=== PATIENT | female | born 1960 | race Caucasian/White ===

== ENCOUNTER → 2017-05-20 | Outpatient (CLI) | payer OTHER ==
[~2017-05-20] MED LIST: 1-ME1LIQ PO; FISH1000 PO; PRAV80TA PO; VITA20002 PO
--- NOTE | 2017-05-28 09:54 | RSPPFT ---
DATE OF PROCEDURE: 05/20/17 COMMENTS: The forced vital capacity shows a small reduction. The FEV1 and FEF 25-75 are both markedly reduced. The FEV1/FVC ratio is reduced. The total lung capacity is increased with a marked increase in the residual volume and an increased RV/TLC ratio. IMPRESSION: This is compatible with marked, large and small airways, obstructive lung disease. The diffusion capacity, when corrected, is also reduced.
== END ==
LOC: HRSP 09:10
PROVIDERS: ATTEND Family Medicine
DX: J44.9 Chronic obstructive pulmonary disease, unspecified (principal)
CPT/HCPCS: 94010; 94726; 94729